=== PATIENT | female | born 1970 | race Hispanic/Latino ===

== ENCOUNTER 2024-06-20 09:44 | Emergency (ER) | payer BC, OTHER ==
[~2024-06-20] VITALS: Ht 162.6 cm; Wt 72.6 kg
--- NOTE | 2024-06-20 10:02 | ERN ---
General Chief Complaint: Urinary Frequency Stated Complaint: DYSURIA Time Seen by MD: 09:49 History of Present Illness Initial Comments 53-year-old female, history of hypertension, presents for dysuria for the last few days. She reports urgency and dysuria. She reports she has had UTIs in the past and this feels similar. No flank pain no fevers no vomiting but she does overall feel weak. Denies any lesions or discharge or vaginal bleeding. Allergies: Coded Allergies: No Known Drug Allergies (Unverified Allergy, Unknown, 06/20/24) Home Meds Active Scripts Cefpodoxime Proxetil (Cefpodoxime Proxetil) 200 Mg Tablet, 200 MG PO BID for 7 Days, #14 TAB Prov:ANTONY ZAVALA DO 06/20/24 Past Medical History Past Medical History: Hypertension, UTI Past Surgical History: Appendectomy ROS Dictation CONSTITUTIONAL: No chills, no fever, no weakness, no diaphoresis, no malaise. HEAD/FACE: No signs of trauma. EENT: No eye pain, no blurred vision, no tearing, no double vision, no ear pain, no ear discharge, no nose pain, no nasal congestion, no throat pain, no throat swelling, no mouth pain. RESPIRATORY: No cough, no orthopnea, no SOB, no stridor, no wheezing. CARDIOVASCULAR: No chest pain, no edema, no palpitations, no syncope. GASTROINTESTINAL/ABDOMINAL: No abdominal pain, no constipation, no diarrhea, no nausea, no vomiting. GENITOURINARY: Dysuria and urgency MUSCULOSKELETAL: No back pain, no gout, no joint pain, no joint swelling, no muscle pain, no muscle stiffness, no neck pain. INTEGUMENTARY: No change in color, no change in hair/nails, no dryness, no lesion, no lumps, no rash. NEUROLOGICAL/PSYCH: No anxiety, not depressed, no emotional problem, no headache, no numbness, no pre-existing deficit, no history of seizures, no tremors, no weakness. HEMATOLOGIC/LYMPHATIC: Not anemic, no history of blood clots, no apparent bleeding, no bruising, glands not swollen. All Systems Negative, Except as Noted. Physical Exam Physical Exam Dictation VITAL SIGNS: Reviewed. GENERAL APPEARANCE: Alert, oriented x3, no acute distress. HEAD AND FACE: Non-traumatic. EYES: PERRL, pink conjunctivas, eyelid no trauma, anterior chamber clear. EARS: Pinnas intact and no signs of trauma or erythema. Ear canals clear and no discharge. TMs no erythema. NOSE: No discharge, no bleeding. OROPHARYNX: Mouth normal, teeth no caries, tongue pink. Pharynx clear, no erythema. Tonsils no exudates, no abscesses noted. Mucous membrane moist. NECK: Supple, non-tender, no thyromegaly, no masses, no JVD, no bruits. BREAST: Deferred. CHEST: No tenderness, no crepitus, no paradoxical movement, no retractions. LUNGS: Clear, well-ventilated, symmetric, no rales, no wheezing, no rhonchi, no stridor, good breath sounds bilaterally. HEART: Regular rate, regular rhythm, no murmur, no gallops. VASCULAR: No peripheral edema. ABDOMEN: Soft, positive bowel sounds, nondistended, no guarding, nontender, no rebound, no masses no hepatomegaly, no splenomegaly, no Mcelroy's sign, no hernias. RECTAL: Deferred. GENITAL: Deferred. NEUROLOGICAL: Normal speech, gross motor function intact, gross sensory function intact. MUSCULOSKELETAL: Neck nontender, full range of motion, back nontender, full range of motion. EXTREMITIES: Nontender, full range of motion. SKIN: Color pink, dry, no turgor, no rash, no lacerations, no abrasions, no contusions. LYMPHATICS: Deferred. Results Laboratory and Microbiology Lab and Micro Result Laboratory Tests Test 06/20/24 09:59 Urine Color LIGHT-YELLOW (YELLOW) Urine Appearance CLOUDY (CLEAR) H Urine pH 7.0 (5.0-8.0) Urine Specific [place] 1.007 (1.001-1.031) Urine Protein 10 mg/dL (NEGATIVE) H Urine Glucose (UA) NEGATIVE mg/dL (NEGATIVE) Urine Ketones NEGATIVE mg/dL (NEGATIVE) Urine Occult Blood LARGE (NEGATIVE) H Urine Nitrate NEGATIVE (NEGATIVE) Urine Bilirubin NEGATIVE mg/dL (NEGATIVE) Urine Urobilinogen 0.2 mg/dL (0.2-1.0) Urine Leukocyte Esterase 500 Tevin/uL (NEGATIVE) H Urine RBC 6-10 /HPF (0-1) H Urine WBC TNTC /HPF (0-1) H Urine WBC Clumps (Auto) FEW /HPF (0-1) Urine Transitional Epithelial Cells RARE /HPF (None Seen) Urine Bacteria FEW /HPF (None Seen) Urine Hyaline Casts 2-5 /LPF (0-1 /LPF) H Urine Other Casts 1 /LPF (None Seen) ED Course Orders Procedure Category Date Status Time Urinalysis LAB 06/20/24 Complete W/Microscopic 09:50 Culture Urine CAMILA 06/20/24 Logged 10:18 Ceftriaxone 1g Vial PHA 06/20/24 Complete (Rocephine 1g Inj) 10:30 Lidocaine Hcl 1% 20ml PHA 06/20/24 Complete Vial (Lidocaine Hc 10:25 Current Medications Medications (Trade) Dose Ordered Sig/Nabila Route PRN Reason Start Time Stop Time Status Last Admin Dose Admin Ceftriaxone Sodium (ROCEphine 1G INJ) 1 gm ONCE ONCE IM 06/20/24 10:30 06/20/24 10:31 DC 06/20/24 10:31 Lidocaine HCl (Lidocaine HCl 1% 20ml Vial) 20 ml STK-MED ONCE .ROUTE 06/20/24 10:25 06/20/24 10:26 DC Vital Signs Date Time Temp Pulse Resp B/P (MAP) Pulse Ox O2 Delivery O2 Flow Rate FiO2 06/20/24 09:48 97.5 70 18 133/60 98 Room Air DX & DISP Disposition: Discharge Departure Impression: Primary Impression: Cystitis Condition: Stable Scripts Phenazopyridine HCl (Pyridium) 100 Mg Tab 1 TAB PO TID for urinary discomfort for 2 Days, #6 TAB 0 Refills Prov: ANTONY ZAVALA DO 06/20/24 Cefpodoxime Proxetil (Cefpodoxime Proxetil) 200 Mg Tablet 200 MG PO BID for 7 Days, #14 TAB Prov: ANTONY ZAVALA DO 06/20/24 Additional Instructions: Your urinalysis is consistent with a urinary tract infection. Your vital signs are stable here in the ER. You received a dose of IM Rocephin (ceftriaxone) here in the ER. I have prescribed cefpodoxime. Take twice daily for the next seven days. For pain relief, you can try [id number] AZO. Note that this may turn your urine orange or red, which is normal. You can also take 600 mg of ibuprofen or 1000 mg of Tylenol as needed. Be sure to drink 8-10 glasses of water daily to help flush out the bacteria. Avoid caffeine, alcohol, and spicy foods as these can irritate the bladder. Be sure to empty you bladder frequently. Please seek medical attention if you develop fever, persistent vomiting, or flank pain. Return to the emergency department as needed. ANTONY ZAVALA DO Jun 20, 2024 10:02
[2024-06-20 10:14] LABS: APPEARANCE,URINE CLOUDY (CLEAR); BILIRUBIN,URINE NEGATIVE (NEGATIVE); COLOR,URINE LIGHT-YELLOW (YELLOW); GLUCOSE, URINE (UA) NEGATIVE (NEGATIVE); KETONES,URINE NEGATIVE (NEGATIVE); LEUKOCYTE ESTERASE ,URINE 500 Leu/uL (NEGATIVE); NITRATE,URINE NEGATIVE (NEGATIVE); OCCULT BLOOD,URINE LARGE (NEGATIVE); PROTEIN,URINE 10 mg/dL (NEGATIVE); UROBILINOGEN,URINE 0.2 mg/dL (0.2-1.0)
[2024-06-20 10:19] LABS: BACTERIA,URINE FEW /HPF (None Seen); MUCUS,URINE RARE LPF (None Seen); OTHER CASTS, URINE 1 /LPF (None Seen); TRANSITIONAL EPI CELLS,URINE RARE /HPF (None Seen); WBC CLUMP FEW /HPF (0-1); WBC,URINE TNTC /HPF (0-1)
[2024-06-20] MEDS ORDERED: CEFP200T14 PO (10:27)
[2024-06-20] MEDS: cefTRIAXone 1G VIAL IM ONE (10:31)
[2024-06-20] MEDS ORDERED: PHEN-846 PO (10:38)
[2024-06-20] MEDS: LIDOCAINE HCL 1% 20 ML VIAL ONE (10:44)
--- NOTE | 2024-06-20 10:44 | NUR ---
lidocane 1% given im with the rochephine. 2ml administered.
[2024-06-20 10:45] VITALS: BP 113/48; PULSE 54; RESP 18; TEMP 98.3; O2SAT 98
== END 2024-06-20 10:47 | disposition home or self-care (01) ==
LOC: EDH 09:44
DX: N30.90 Cystitis, unspecified without hematuria (principal); I10 Essential (primary) hypertension; Z90.49 Acquired absence of other specified parts of digestive tract
CPT/HCPCS: 99284; 87086 ×2; 87186; 81001; 96372; J0696